=== PATIENT | female | born 1945 | race African-American/Black ===

== ENCOUNTER 2019-08-07 20:05 | Inpatient (IN) ==
[2019-08-07] MEDS ORDERED: MORPHINE 4 MG/1 ML VIAL IV STA (21:04)
[2019-08-07 21:41] LABS: Basophils # 0.1 10*3/uL (0.0-0.2); Basophils % 0.3 % (0.0-0.8); Eosinophils % 0.1 % (0.00-10.9); Hematocrit 35.3 VOL% (35.7-47.0); Hemoglobin 11.2 GM/DL (12.0-16.0); Immature Granulocytes % 0.5 %; Immature Granulocytes Absolute 0.09 #; Lymphocytes # 1.2 10*3/uL (1.4-4.0); Lymphocytes % 7.2 % (21.3-54.2); Mean Corpuscular HGB Conc 31.7 GM/DL (32-36); Mean Corpuscular Volume 93.9 FL (87-102); Mean Platelet Volume 9.6 FL (9.6-12.0); Monocytes % 5.6 % (1.7-12.7); Neutrophils % 86.3 % (38.7-73.9); Platelet Count 290 T/CUMM (130-400); Red Blood Count 3.76 MC/CUMM (3.8-5.5); Red Cell Distribution Width 14.5 % (9.3-17.3); White Blood Count 16.9 T/CUMM (4-12)
[2019-08-07 21:57] LABS: Partial Thromboplastin Time 21.3 SECS (23.9-33.8)
[2019-08-07] MEDS ORDERED: ceFAZolin 1,000 MG VIAL ONE (22:02)
[2019-08-07] MEDS ORDERED: SODIUM CHLORIDE 0.9% 1,000 ML IV STA (22:03)
[2019-08-07 22:04] LABS: Alanine Aminotransferase 104 U/L (13-56); Alkaline Phosphatase 56 U/L (45-117); Aspartate Amino Transferase 163 U/L (0-37); Bilirubin,Total < 0.39 MG/DL (0.2-1.0); Blood Urea Nitrogen 29 MG/DL (7-18); Calcium 7.7 MG/DL (8.5-10.1); Estimated Glom Filtration Rate 39 ML/MIN; Glucose 159 MG/DL (74-106); Osmolality,Calculated 283.7 MOS/KG (273-304); Total Protein 5.9 G/DL (6.4-8.3)
[2019-08-08] MEDS ORDERED: SUGAMMADEX 200 MG/2 ML VIAL IV ONE (00:25)
[2019-08-08] MEDS ORDERED: HYDROmorphone 2 MG/1 ML VIAL ONE (00:26)
[2019-08-08] MEDS ORDERED: ONDANSETRON 4 MG/2 ML VIAL ONE ×2 (00:26→00:37)
[2019-08-08 00:27] LABS: Apearance,Urine CLEAR (Clear); Bilirubin,Urine Negative (Negative); Blood, Urine Large mg/dL (Negative); Glucose,Urine (UA) Negative (Negative); Ketones,Urine Negative (Negative); Mucus,Urine Occasional /LPF (Occasional); Nitrite,Urine Negative (Negative); Protein,Urine Negative; RBC,Urine 7 /HPF (0-4); Urine Color Straw (Yellow); Urine Specific Gravity 1.029 (1.001-1.035); Urine Urobilinogen < 2.0 EU/DL (0.2-1.0); WBC,Urine 1 /HPF (0-6)
[2019-08-08] MEDS: HYDROmorphone 2 MG/1 ML VIAL IV PRN ×4 (00:34→00:52)
[2019-08-08] MEDS ORDERED: LIDOCAINE 2% 5 ML VIAL ONE (00:36)
[2019-08-08] MEDS ORDERED: fentaNYL 100 MCG/2 ML VIAL ONE (00:36)
[2019-08-08] MEDS ORDERED: PHENYLEPHRINE DRIP 20 MG/250 ML PREMIX IV ONE (00:36)
[2019-08-08] MEDS ORDERED: SEVOFLURANE 1 UNIT/15 MINUTE INH ONE (00:36)
[2019-08-08] MEDS ORDERED: ETOMIDATE 40 MG/20 ML VIAL IV ONE (00:37)
[2019-08-08] MEDS ORDERED: DEXAMETHASONE 4 MG/1 ML VIAL ONE (00:37)
[2019-08-08] MEDS ORDERED: SUCCINYLCHOLINE 200 MG/10 ML VIAL ONE (00:37)
[2019-08-08] MEDS ORDERED: ROCURONIUM 100 MG/10 ML VIAL IV ONE (00:37)
[2019-08-08] MEDS ORDERED: ePHEDrine 50 MG/ML AMP ONE (00:37)
[2019-08-08] MEDS ORDERED: LACTATED RINGERS 1,000 ML IV ONE (00:37)
[2019-08-08] MEDS ORDERED: ONDANSETRON 4 MG/2 ML VIAL IV PRN ×2 (00:46→10:31)
[2019-08-08] MEDS: DEXTROSE 5% LACTATED RINGERS 1,000 ML IV SCH ×4 (00:48→21:56)
[2019-08-08 01:14] LABS: Hematocrit 40.7 VOL% (35.7-47.0); Hemoglobin 12.8 GM/DL (12.0-16.0)
[2019-08-08] MEDS ORDERED: hydrALAZINE 20 MG/1 ML VIAL IV PRN (01:15)
[2019-08-08] MEDS: cefOXitin 1,000 MG in SYRINGE 1 EACH IV SCH ×3 (04:23→16:22)
[2019-08-08] MEDS: MORPHINE 4 MG/1 ML VIAL IV PRN ×5 (06:15→21:53)
[2019-08-08 06:26] LABS: Basophils % 0.1 % (0.0-0.8); Hematocrit 40.7 VOL% (35.7-47.0); Hemoglobin 12.6 GM/DL (12.0-16.0); Immature Granulocytes % 0.5 %; Immature Granulocytes Absolute 0.07 #; Lymphocytes # 0.5 10*3/uL (1.4-4.0); Lymphocytes % 3.4 % (21.3-54.2); Mean Corpuscular Volume 94.9 FL (87-102); Platelet Count 292 T/CUMM (130-400); Red Blood Count 4.29 MC/CUMM (3.8-5.5); Red Cell Distribution Width 14.6 % (9.3-17.3); White Blood Count 14.9 T/CUMM (4-12)
[2019-08-08 06:48] LABS: Osmolality,Calculated 288.3 MOS/KG (273-304)
[2019-08-08 06:52] LABS: Band Neutrophils 10 % (0-10); Lymphocytes 4 % (20-55); Segmented Neutrophils 82 % (50-85); Total Cells Counted 100
[2019-08-08 06:53] LABS: Burr Cells Slight; Hypochromasia 1+; Microcytosis Slight
[2019-08-08 06:54] LABS: Acanthocytes Few; Ovalocytes Slight
[2019-08-08 08:38] LABS: Hematocrit 39.8 VOL% (35.7-47.0); Hemoglobin 12.5 GM/DL (12.0-16.0)
[2019-08-08] MEDS: ISOSORBIDE MONONITRATE 60 MG TABLET PO SCH (10:01)
[2019-08-08] MEDS: METOPROLOL TARTRATE 25 MG TABLET PO SCH ×2 (10:02→21:53)
[2019-08-08] MEDS: PANTOPRAZOLE 40 MG VIAL IV SCH (10:03)
[2019-08-08] MEDS ORDERED: ALBUTEROL/IPRATROPIUM 3 ML NEB RESP TX PRN (12:48)
[2019-08-08] MEDS: ALBUTEROL/IPRATROPIUM 3 ML NEB RESP TX SCH ×2 (13:04→19:00)
[2019-08-08 16:22] LABS: Hematocrit 35.7 VOL% (35.7-47.0); Hemoglobin 11.3 GM/DL (12.0-16.0)
[2019-08-08] MEDS ORDERED: HYDROmorphone 2 MG/1 ML VIAL IV PRN ×2 (20:01)
[2019-08-09] MEDS: ALBUTEROL/IPRATROPIUM 3 ML NEB RESP TX SCH ×4 (01:38→20:36)
[2019-08-09] MEDS: MORPHINE 4 MG/1 ML VIAL IV PRN ×5 (03:25→22:04)
[2019-08-09] MEDS: DEXTROSE 5% LACTATED RINGERS 1,000 ML IV SCH ×3 (04:17→22:05)
[2019-08-09 05:45] LABS: Alanine Aminotransferase 80 U/L (13-56); Albumin 2.6 G/DL (3.4-5.0); Alkaline Phosphatase 52 U/L (45-117); Aspartate Amino Transferase 87 U/L (0-37); Bilirubin,Total < 0.39 MG/DL (0.2-1.0); Blood Urea Nitrogen 16 MG/DL (7-18); Calcium 7.8 MG/DL (8.5-10.1); Estimated Glom Filtration Rate 51 ML/MIN; Glucose 135 MG/DL (74-106); Osmolality,Calculated 281.4 MOS/KG (273-304); Total Protein 5.8 G/DL (6.4-8.3)
[2019-08-09 06:31] LABS: Basophils % 0.3 % (0.0-0.8); Eosinophils % 0.3 % (0.00-10.9); Hemoglobin 10.4 GM/DL (12.0-16.0); Immature Granulocytes % 0.6 %; Immature Granulocytes Absolute 0.07 #; Lymphocytes # 1.1 10*3/uL (1.4-4.0); Lymphocytes % 8.4 % (21.3-54.2); Mean Corpuscular HGB Conc 32.5 GM/DL (32-36); Mean Corpuscular Volume 92.5 FL (87-102); Mean Platelet Volume 9.8 FL (9.6-12.0); Monocytes % 5.7 % (1.7-12.7); Neutrophils % 84.7 % (38.7-73.9); Platelet Count 226 T/CUMM (130-400); Red Blood Count 3.46 MC/CUMM (3.8-5.5); White Blood Count 12.6 T/CUMM (4-12)
[2019-08-09] MEDS: PANTOPRAZOLE 40 MG VIAL IV SCH (08:30)
[2019-08-09] MEDS: ISOSORBIDE MONONITRATE 60 MG TABLET PO SCH (08:35)
[2019-08-09] MEDS: METOPROLOL TARTRATE 25 MG TABLET PO SCH ×2 (08:36→20:16)
[2019-08-10] MEDS: ALBUTEROL/IPRATROPIUM 3 ML NEB RESP TX SCH ×4 (00:46→19:18)
[2019-08-10] MEDS: DEXTROSE 5% LACTATED RINGERS 1,000 ML IV SCH ×2 (05:33→18:49)
[2019-08-10] MEDS: MORPHINE 4 MG/1 ML VIAL IV PRN ×2 (05:34→19:52)
[2019-08-10 06:16] LABS: Basophils % 0.4 % (0.0-0.8); Eosinophils # 0.2 10*3/uL (0.0-0.87); Eosinophils % 1.9 % (0.00-10.9); Hematocrit 29.1 VOL% (35.7-47.0); Hemoglobin 9.2 GM/DL (12.0-16.0); Immature Granulocytes % 0.4 %; Immature Granulocytes Absolute 0.04 #; Lymphocytes # 1.1 10*3/uL (1.4-4.0); Lymphocytes % 11.3 % (21.3-54.2); Mean Corpuscular HGB Conc 31.6 GM/DL (32-36); Mean Corpuscular Volume 93.9 FL (87-102); Mean Platelet Volume 10.2 FL (9.6-12.0); Monocytes % 6.9 % (1.7-12.7); Neutrophils % 79.1 % (38.7-73.9); Platelet Count 221 T/CUMM (130-400); Red Cell Distribution Width 14.6 % (9.3-17.3); White Blood Count 9.4 T/CUMM (4-12)
[2019-08-10 06:40] LABS: Albumin 2.6 G/DL (3.4-5.0); Bilirubin,Total 0.5 MG/DL (0.2-1.0); Calcium 8.2 MG/DL (8.5-10.1); Osmolality,Calculated 276.5 MOS/KG (273-304); Total Protein 5.8 G/DL (6.4-8.3)
[2019-08-10] MEDS: ISOSORBIDE MONONITRATE 60 MG TABLET PO SCH (09:21)
[2019-08-10] MEDS: METOPROLOL TARTRATE 25 MG TABLET PO SCH ×2 (09:21→20:39)
[2019-08-10] MEDS: PANTOPRAZOLE 40 MG VIAL IV SCH (09:23)
[2019-08-10] MEDS: oxyCODONE/ACETAMINOPHEN 5-325 MG TABLET PO PRN ×2 (10:25→22:58)
[2019-08-11] MEDS: ALBUTEROL/IPRATROPIUM 3 ML NEB RESP TX SCH ×4 (00:42→19:11)
[2019-08-11] MEDS: oxyCODONE/ACETAMINOPHEN 5-325 MG TABLET PO PRN ×2 (07:00→19:44)
[2019-08-11 08:09] LABS: Basophils # 0.1 10*3/uL (0.0-0.2); Basophils % 0.8 % (0.0-0.8); Eosinophils # 0.4 10*3/uL (0.0-0.87); Eosinophils % 4.6 % (0.00-10.9); Hematocrit 32.2 VOL% (35.7-47.0); Hemoglobin 10.3 GM/DL (12.0-16.0); Immature Granulocytes % 0.2 %; Immature Granulocytes Absolute 0.02 #; Lymphocytes # 1.5 10*3/uL (1.4-4.0); Lymphocytes % 16.7 % (21.3-54.2); Mean Platelet Volume 9.8 FL (9.6-12.0); Monocytes % 8.3 % (1.7-12.7); Neutrophils % 69.4 % (38.7-73.9); Platelet Count 293 T/CUMM (130-400); Red Cell Distribution Width 14.2 % (9.3-17.3); White Blood Count 8.8 T/CUMM (4-12)
[2019-08-11] MEDS: METOPROLOL TARTRATE 25 MG TABLET PO SCH ×2 (09:00→20:51)
[2019-08-11] MEDS: PANTOPRAZOLE 40 MG VIAL IV SCH (09:00)
[2019-08-11] MEDS: ISOSORBIDE MONONITRATE 60 MG TABLET PO SCH (09:00)
[2019-08-11] MEDS: DEXTROSE 5% LACTATED RINGERS 1,000 ML IV SCH ×2 (09:10→20:54)
[2019-08-11] MEDS: KETOROLAC 15 MG/1 ML VIAL IV SCH ×3 (09:10→20:52)
[2019-08-12] MEDS: ALBUTEROL/IPRATROPIUM 3 ML NEB RESP TX SCH ×4 (00:55→19:45)
[2019-08-12] MEDS: KETOROLAC 15 MG/1 ML VIAL IV SCH ×2 (02:33→09:13)
[2019-08-12] MEDS: oxyCODONE/ACETAMINOPHEN 5-325 MG TABLET PO PRN (05:44)
[2019-08-12 06:05] LABS: Basophils # 0.1 10*3/uL (0.0-0.2); Basophils % 0.9 % (0.0-0.8); Eosinophils # 0.6 10*3/uL (0.0-0.87); Eosinophils % 9.3 % (0.00-10.9); Hematocrit 30.4 VOL% (35.7-47.0); Hemoglobin 9.7 GM/DL (12.0-16.0); Immature Granulocytes % 0.3 %; Immature Granulocytes Absolute 0.02 #; Lymphocytes # 1.4 10*3/uL (1.4-4.0); Lymphocytes % 20.8 % (21.3-54.2); Mean Corpuscular HGB Conc 31.9 GM/DL (32-36); Mean Corpuscular Volume 91.8 FL (87-102); Mean Platelet Volume 9.4 FL (9.6-12.0); Monocytes % 8.9 % (1.7-12.7); Neutrophils % 59.8 % (38.7-73.9); Platelet Count 312 T/CUMM (130-400); Red Blood Count 3.31 MC/CUMM (3.8-5.5); Red Cell Distribution Width 14.1 % (9.3-17.3); White Blood Count 6.8 T/CUMM (4-12)
[2019-08-12 06:28] LABS: Albumin 2.6 G/DL (3.4-5.0); Calcium 8.8 MG/DL (8.5-10.1); Osmolality,Calculated 276.5 MOS/KG (273-304); Total Protein 6.1 G/DL (6.4-8.3)
[2019-08-12] MEDS: PANTOPRAZOLE 40 MG VIAL IV SCH (09:09)
[2019-08-12] MEDS: METOPROLOL TARTRATE 25 MG TABLET PO SCH ×2 (09:09→21:02)
[2019-08-12] MEDS: ISOSORBIDE MONONITRATE 60 MG TABLET PO SCH (09:09)
[2019-08-12] MEDS: DEXTROSE 5% LACTATED RINGERS 1,000 ML IV SCH ×2 (09:46→21:02)
[2019-08-12] MEDS: MORPHINE 4 MG/1 ML VIAL IV PRN (19:42)
[2019-08-13] MEDS: ALBUTEROL/IPRATROPIUM 3 ML NEB RESP TX SCH ×2 (01:20→07:25)
[2019-08-13] MEDS: MORPHINE 4 MG/1 ML VIAL IV PRN (01:31)
[2019-08-13] MEDS: oxyCODONE/ACETAMINOPHEN 5-325 MG TABLET PO PRN (06:12)
[2019-08-13 06:15] LABS: Basophils # 0.1 10*3/uL (0.0-0.2); Basophils % 0.9 % (0.0-0.8); Eosinophils # 0.5 10*3/uL (0.0-0.87); Eosinophils % 6.8 % (0.00-10.9); Hemoglobin 9.1 GM/DL (12.0-16.0); Immature Granulocytes % 0.4 %; Immature Granulocytes Absolute 0.03 #; Lymphocytes # 1.5 10*3/uL (1.4-4.0); Lymphocytes % 22.2 % (21.3-54.2); Mean Corpuscular HGB Conc 32.5 GM/DL (32-36); Mean Corpuscular Volume 90.3 FL (87-102); Mean Platelet Volume 9.7 FL (9.6-12.0); Monocytes % 9.3 % (1.7-12.7); NRBC # 0.05 10*3/uL; Neutrophils % 60.4 % (38.7-73.9); Platelet Count 345 T/CUMM (130-400); Red Cell Distribution Width 14.3 % (9.3-17.3); White Blood Count 6.9 T/CUMM (4-12)
[2019-08-13 06:34] LABS: Calcium 8.6 MG/DL (8.5-10.1); Osmolality,Calculated 278.4 MOS/KG (273-304)
[2019-08-13] MEDS: METOPROLOL TARTRATE 25 MG TABLET PO SCH (08:28)
[2019-08-13] MEDS: PANTOPRAZOLE 40 MG VIAL IV SCH (08:28)
[2019-08-13] MEDS: ISOSORBIDE MONONITRATE 60 MG TABLET PO SCH (08:28)
[2019-08-13 08:38] VITALS: BP 161/78
== END 2019-08-13 11:00 | disposition home health service (06) | DRG 958 ==
LOC: N.ED 20:05 → N.ICU 22:45 → N.EDINP 08-08 00:06 → N.ICU 08-08 00:37 → N.3E 08-08 15:08
PROVIDERS: ADMIT Surgery; ATTEND Surgery